=== PATIENT | female | born 1995 | race African-American/Black ===

== ENCOUNTER 2018-08-24 10:52 | Emergency (ER) | payer SELFPAY ==
[2018-08-24 11:56] LABS: ABS Basophils 0 10^3/ul (0-0.2); ABS Eosinophils 0.1 10^3/ul (0-0.6); ABS Lymphocytes 1.6 10^3/ul (1.0-4.8); ABS Monocytes 0.3 10^3/ul (0-0.8); ABS Neutrophils 2.2 10^3/ul (1.5-7.7); ABS Nucleated RBC 0 10^3/ul; Eosinophil % 2.9 % (0-6); Hematocrit 41 % (35-47); Hemoglobin 13.9 g/dl (12.0-16.0); Lymphocyte % 37.1 % (25-47); Mean Corpuscular HGB Conc 34 g/dl (31-36); Mean Corpuscular Hemoglobin 33 pg (27-31); Mean Corpuscular Volume 98 fL (80-97); Mean Platelet Volume 9.3 fL (7.4-10.4); Nucleated Red Blood Cells % 0.1; Platelet Count 222 10^3/ul (150-450); Red Blood Count 4.21 10^6/ul (4.00-5.40); Red Cell Distribution Width 14 % (10.5-15); White Blood Count 4.4 10^3/ul (3.5-10.8)
--- NOTE | 2018-08-24 12:00 | ED ---
Psychiatric Complaint - HPI Summary HPI Summary: A 22 y/o senior at [employer] presents to the ED c/o SI with a plan. She states that she has had SI "for a while" but recently thought of a plan by taking OTC sleeping pills with wine. She states that she has an appt with a therapist on but cannot see her psychiatric nurse until September 2018. [facility] referred her to the ED. - History Of Current Complaint Chief Complaint: EDMentalHealth Time Seen by Provider: 08/24/18 11:09 Hx Obtained From: Patient Onset/Duration: Gradual Onset, Still Present Related History: Positive For: Prior Psychiatric Issues Has Suicidal: Reports: Thoughts, With A Plan - Allergies/Home Medications Allergies/Adverse Reactions: Allergies Allergy/AdvReac Type Severity Reaction Status Date / Time No Known Allergies Allergy Verified 08/24/18 11:05 PMH/Surg Hx/FS Hx/Imm Hx Endocrine/Hematology History: Denies: Hx Diabetes Cardiovascular History: Denies: Hx Hypertension Psychiatric History: Reports: Other Psychiatric Issues/Disorders Infectious Disease History: No Infectious Disease History: Denies: Traveled Outside the [place] in Last 30 Days - Family History Known Family History: Positive: Hypertension, Diabetes - Social History Alcohol Use: Weekly Substance Use Type: Reports: None Smoking Status (MU): Never Smoked Tobacco Review of Systems Negative: Fever Positive: Other - Positive: SI with a plan All Other Systems Reviewed And Are Negative: Yes Physical Exam - Summary Physical Exam Summary: Appearance: The patient is well-nourished in no acute distress and in no acute pain. Skin: The skin is warm and dry and skin color reflects adequate perfusion. HEENT: The head is normocephalic and atraumatic. The pupils are equal and reactive. The conjunctivae are clear and without drainage. Nares are patent and without drainage. Mouth reveals moist mucous membranes and the throat is without erythema and exudate. The external ears are intact. The ear canals are patent and without drainage. The tympanic membranes are intact. Neck: The neck is supple with full range of motion and non-tender. There are no carotid bruits. There is no neck vein distension. Respiratory: Chest is non-tender. Lungs are clear to auscultation and breath sounds are symmetrical and equal. Cardiovascular: Heart is regular rate and rhythm. There is no murmur or rub auscultated. There is no peripheral edema and pulses are symmetrical and equal. Abdomen: The abdomen is soft and non-tender. There are normal bowel sounds heard in all four quadrants and there is no organomegaly palpated. Musculoskeletal: There is no back tenderness noted. Extremities are non-tender with full range of motion. There is good capillary refill. There is no peripheral edema or calf tenderness elicited. Neurological: Patient is alert and oriented to person, place and time. The patient has symmetrical motor strength in all four extremities. Cranial nerves are grossly intact. Deep tendon reflexes are symmetrical and equal in all four extremities. Psychiatric: The patient has an appropriate affect and does not exhibit any anxiety or depression. Triage Information Reviewed: Yes Vital Signs On Initial Exam: Initial Vitals Temp Pulse Resp BP Pulse Ox 97.5 F 110 14 129/76 97 08/24/18 11:01 08/24/18 11:01 08/24/18 11:01 08/24/18 11:01 08/24/18 11:01 Vital Signs Reviewed: Yes Diagnostics - Vital Signs Vital Signs Temp Pulse Resp BP Pulse Ox 08/24/18 11:01 97.5 F 110 14 129/76 97 - Laboratory Result Diagrams: 08/24/18 11:45 08/24/18 11:45 Lab Statement: Any lab studies that have been ordered have been reviewed, and results considered in the medical decision making process. Re-Evaluation - Re-Evaluation First Eval Re-Evaluation Time: 11:35 Change: Unchanged Comment: Cleared for MHE Course/Dx - Course Course Of Treatment: Ms. Owusu was medically cleared here in the emergency department and had a mental health evaluation. They felt that she was safe for discharge and set up an outpatient follow-up plan. - Differential Dx/Clinical Impression Provider Diagnosis: Depression, Adjustment disorder - Physician Notifications Time Discussed With Above Provider: 15:00 Instructed by Provider To: Other - Per MH deputy court, Dr Santos diagnosed the pt with depression and adjustment disorder and will be discharged home. Discharge - Sign-Out/Discharge Documenting (check all that apply): Patient Departure - DC - Discharge Plan Condition: Stable Disposition: HOME Patient Education Materials: Depression (ED) Referrals: [facility] [Outside] (2-3 days) - Billing Disposition and Condition Condition: STABLE Disposition: Home - Attestation Statements Document Initiated by Scribe: Yes Documenting Scribe: Yair Zhong Provider For Whom Scribe is Documenting (Include Credential): Steve Braga MD Scribe Attestation: I, Yair Zhong, scribed for Steve Braga MD on 08/24/18 at 1941. Scribe Documentation Reviewed: Yes Provider Attestation: The documentation as recorded by the chrise, Yair Zhong accurately reflects the service I personally performed and the decisions made by me, Steve Braga MD
[2018-08-24 12:19] LABS: EGFR Non-African American 94.6 (>60)
[2018-08-24 12:32] LABS: Urine Appearance Clear; Urine Blood Negative (Negative); Urine Color Colorless; Urine Ketones Negative (Negative); Urine Protein Negative (Negative); Urine Specific Gravity 1.002 (1.010-1.030); Urine Urobilinogen Negative (Negative)
[2018-08-24 15:09] VITALS: BP 114/75
== END 2018-08-24 15:25 | disposition home or self-care (01) ==
LOC: ED 10:52
DX: F32.9 Major depressive disorder, single episode, unspecified (principal); F43.20 Adjustment disorder, unspecified
CPT/HCPCS: 36415; 80053; 80307; 80320; 80329; 81003; 84443; 84702; 85025; 99282; G0480